=== PATIENT | male | born 1975 | race Caucasian/White ===

== ENCOUNTER 2020-10-17 07:18 | Outpatient (CLI) | payer OTHER | END 2020-10-17 07:27 | disposition home or self-care (01) | LOC: RAD 07:18 | PROVIDERS: ATTEND Chiropractor | DX: M62.838 Other muscle spasm (principal); M54.5 Low back pain; M54.2 Cervicalgia ==

== ENCOUNTER 2022-05-05 07:20 | Outpatient (CLI) | payer OTHER | END 2022-05-05 07:24 | disposition home or self-care (01) | LOC: LAB 07:20 | DX: R30.0 Dysuria (principal); N40.0 Benign prostatic hyperplasia without lower urinary tract symptoms; E55.9 Vitamin D deficiency, unspecified; D64.1 Secondary sideroblastic anemia due to disease; R10.9 Unspecified abdominal pain; M54.50 Low back pain, unspecified; Z12.11 Encounter for screening for malignant neoplasm of colon ==

== ENCOUNTER 2022-05-05 07:46 | Outpatient (CLI) | payer OTHER | END 2022-05-05 08:00 | disposition home or self-care (01) | LOC: SONOGRAMA 07:46 | DX: R10.9 Unspecified abdominal pain (principal); M54.50 Low back pain, unspecified ==

== ENCOUNTER 2023-01-04 06:59 | Outpatient (CLI) | payer OTHER | END 2023-01-04 07:03 | disposition home or self-care (01) | LOC: LAB 06:59 | PROVIDERS: ATTEND Internal Medicine | DX: E03.9 Hypothyroidism, unspecified (principal); I10 Essential (primary) hypertension; E03.8 Other specified hypothyroidism; E78.2 Mixed hyperlipidemia; E11.65 Type 2 diabetes mellitus with hyperglycemia ==

== ENCOUNTER 2023-07-28 06:49 | Outpatient (CLI) | payer OTHER ==
[2023-07-28 07:53] LABS: PH,URINE 6.5 (5.0-8.0); URINE APPEARANCE Clear; URINE BILIRRUBIN Negative (NEGATIVE); URINE BLOOD Negative; URINE COLOR Yellow; URINE GLUCOSE Negative (NEGATIVE); URINE LEUKOCYTE Negative; URINE NITRATE Negative; URINE PROTEIN Negative (NEGATIVE); URINE UROBILINOGEN 0.2 E.U./dl
[2023-07-28 07:54] LABS: HEMOGLOBIN 14.3 g/dL (13-16.00); MEAN CELL VOLUME 86.5 fL (80.0-100.00); MEAN CORPUSCULAR HEMOGLOBIN 29.5 pg (27.00-32.0); MEAN CORPUSCULAR HGB CONC 34.1 g/dl (32.0-36.0); PLATELET COUNT 246 K/uL (150-450); RED BLOOD COUNT 4.86 M/uL (4.00-6.00); RED CELL DISTRIBUTION WIDTH 14.5 % (11.5-14.5)
[2023-07-28 08:14] LABS: URINE BACTERIA 1.2 uL (0.0-1933); URINE EPITHELIAL CELLS 0.6 uL (0.0-38.8); URINE RBC 0.1 uL (0.0-20.8); URINE WBC 0.6 uL (0.0-23.2)
[2023-07-28 08:40] LABS: CREATININE SERUM 0.8 mg/dL (0.70-1.30); GFR 103.62; POTASSIUM 4.5 mEq/L (3.5-5.1)
[2023-07-28 08:41] LABS: BILIRUBIN TOTAL 0.48 mg/dL (0.3-1.2); CALCIUM 9.4 mg/dL (8.5-10.1); CHOL HDL RATIO 2.8 (0-5.0); GLOBULINA 3.1 G/DL (2.4-3.5); TOTAL PROTEIN 7.1 gm/dL (6.4-8.2)
[2023-07-28 10:23] LABS: VITAMIN D3 25 HYDROXY 31.76 ng/ml (30-120)
[2023-07-28 11:36] LABS: T4 FREE 1.05 NG/ML (0.76-1.46)
== END 2023-07-28 06:50 | disposition home or self-care (01) ==
LOC: LAB 06:49
PROVIDERS: ATTEND Internal Medicine
DX: E11.65 Type 2 diabetes mellitus with hyperglycemia (principal); E78.5 Hyperlipidemia, unspecified; I10 Essential (primary) hypertension; E53.8 Deficiency of other specified B group vitamins; E55.9 Vitamin D deficiency, unspecified

== ENCOUNTER → 2023-10-28 06:55 | Outpatient (CLI) | payer OTHER ==
[2023-10-28 07:28] LABS: URINE APPEARANCE Clear; URINE BILIRRUBIN Negative (NEGATIVE); URINE BLOOD Negative; URINE COLOR Yellow; URINE GLUCOSE Negative (NEGATIVE); URINE LEUKOCYTE Negative; URINE NITRATE Negative; URINE PROTEIN Negative (NEGATIVE); URINE UROBILINOGEN 0.2 E.U./dl
[2023-10-28 07:32] LABS: URINE BACTERIA 2.5 uL (0.0-1933); URINE EPITHELIAL CELLS 1.6 uL (0.0-38.8); URINE RBC 0.5 uL (0.0-20.8); URINE WBC 2.1 uL (0.0-23.2)
[2023-10-28 07:37] LABS: HEMOGLOBIN 14.6 g/dL (13-16.00); MEAN CORPUSCULAR HEMOGLOBIN 29.5 pg (27.00-32.0); MEAN CORPUSCULAR HGB CONC 33.9 g/dl (32.0-36.0); PLATELET COUNT 249 K/uL (150-450); RED BLOOD COUNT 4.95 M/uL (4.00-6.00); RED CELL DISTRIBUTION WIDTH 14.3 % (11.5-14.5)
[2023-10-28 08:41] LABS: ALBUMIN 3.9 gm/dL (3.4-5.0); BILIRUBIN TOTAL 0.44 mg/dL (0.3-1.2); CHOL HDL RATIO 2.9 (0-5.0); CREATININE SERUM 0.75 mg/dL (0.70-1.30); GFR 111.63; GLOBULINA 2.7 G/DL (2.4-3.5); POTASSIUM 4.4 mEq/L (3.5-5.1); TOTAL PROTEIN 6.6 gm/dL (6.4-8.2); TSH 2.94 uIU/mL (0.358-3.74)
== END | disposition home or self-care (01) ==
LOC: LAB 06:55
PROVIDERS: ATTEND Internal Medicine
DX: E11.65 Type 2 diabetes mellitus with hyperglycemia (principal); E78.5 Hyperlipidemia, unspecified; E55.9 Vitamin D deficiency, unspecified; E03.8 Other specified hypothyroidism; I10 Essential (primary) hypertension

== ENCOUNTER 2024-03-14 07:24 | Outpatient (CLI) | payer OTHER ==
[2024-03-14 08:00] LABS: HEMOGLOBIN 14.2 g/dL (13-16.00); MEAN CELL VOLUME 86.6 fL (80.0-100.00); MEAN CORPUSCULAR HGB CONC 34.6 g/dl (32.0-36.0); PLATELET COUNT 243 K/uL (150-450); RED BLOOD COUNT 4.73 M/uL (4.00-6.00); RED CELL DISTRIBUTION WIDTH 14.5 % (11.5-14.5)
[2024-03-14 08:27] LABS: ALBUMIN 3.9 gm/dL (3.4-5.0); BILIRUBIN TOTAL 0.63 mg/dL (0.3-1.2); CALCIUM 9.3 mg/dL (8.5-10.1); CHOL HDL RATIO 3.6 (0-5.0); CREATININE SERUM 0.77 mg/dL (0.70-1.30); GFR 107.83; POTASSIUM 4.14 mEq/L (3.5-5.1); TOTAL PROTEIN 6.9 gm/dL (6.4-8.2)
== END 2024-03-14 07:25 | disposition home or self-care (01) ==
LOC: LAB 07:24
PROVIDERS: ATTEND Internal Medicine
DX: E11.65 Type 2 diabetes mellitus with hyperglycemia (principal); E78.5 Hyperlipidemia, unspecified; I10 Essential (primary) hypertension

== ENCOUNTER 2024-06-17 07:50 | Outpatient (CLI) | payer OTHER ==
[2024-06-17 10:36] LABS: HEMATOCRIT 45.3 % (39.0-48.0); HEMOGLOBIN 15.1 g/dL (13-16.00); MEAN CELL VOLUME 89.2 fL (80.0-100.00); MEAN CORPUSCULAR HEMOGLOBIN 29.7 pg (27.00-32.0); MEAN CORPUSCULAR HGB CONC 33.3 g/dl (32.0-36.0); PLATELET COUNT 273 K/uL (150-450); RED BLOOD COUNT 5.08 M/uL (4.00-6.00); RED CELL DISTRIBUTION WIDTH 14.3 % (11.5-14.5)
[2024-06-17 10:42] LABS: URINE APPEARANCE Clear; URINE BILIRRUBIN Negative (NEGATIVE); URINE BLOOD Negative; URINE COLOR Yellow; URINE GLUCOSE Negative (NEGATIVE); URINE KETONE Negative (NEGATIVE); URINE LEUKOCYTE Negative; URINE NITRATE Negative; URINE PROTEIN Negative (NEGATIVE); URINE UROBILINOGEN 0.2 E.U./dl
[2024-06-17 10:49] LABS: URINE EPITHELIAL CELLS 1.5 uL (0.0-38.8)
[2024-06-17 11:04] LABS: URINE BACTERIA 3.7 uL (0.0-1933); URINE RBC 0.9 uL (0.0-20.8); URINE WBC 1.2 uL (0.0-23.2)
[2024-06-17 11:19] LABS: ALBUMIN 4.3 gm/dL (3.4-5.0); BILIRUBIN TOTAL 0.58 mg/dL (0.3-1.2); CALCIUM 9.1 mg/dL (8.5-10.1); CHOL HDL RATIO 2.3 (0-5.0); CREATININE SERUM 0.74 mg/dL (0.70-1.30); GFR 112.89; GLOBULINA 3.1 G/DL (2.4-3.5); POTASSIUM 4.41 mEq/L (3.5-5.1); T4 FREE 1.03 NG/ML (0.76-1.46); TOTAL PROTEIN 7.4 gm/dL (6.4-8.2); TSH 1.48 uIU/mL (0.358-3.74)
== END 2024-06-17 07:51 | disposition home or self-care (01) ==
LOC: LAB 07:50
PROVIDERS: ATTEND Internal Medicine
DX: E11.65 Type 2 diabetes mellitus with hyperglycemia (principal); E78.5 Hyperlipidemia, unspecified; I10 Essential (primary) hypertension; E55.9 Vitamin D deficiency, unspecified

== ENCOUNTER 2024-06-20 11:05 | Outpatient (CLI) | payer OTHER | END 2024-06-20 11:32 | disposition home or self-care (01) | LOC: MRI 11:05 | PROVIDERS: ATTEND Podiatrist Foot Surgery | DX: M72.2 Plantar fascial fibromatosis (principal) | CPT/HCPCS: 73718 ==

== ENCOUNTER 2024-10-06 07:44 | Outpatient (CLI) | payer OTHER ==
[2024-10-06 08:30] LABS: URINE APPEARANCE Clear; URINE BILIRRUBIN Negative (NEGATIVE); URINE BLOOD Negative; URINE COLOR Yellow; URINE GLUCOSE Negative (NEGATIVE); URINE KETONE Negative (NEGATIVE); URINE LEUKOCYTE Negative; URINE NITRATE Negative; URINE PROTEIN Negative (NEGATIVE); URINE UROBILINOGEN 0.2 E.U./dl
[2024-10-06 08:31] LABS: HEMATOCRIT 44.2 % (39.0-48.0); HEMOGLOBIN 15.3 g/dL (13-16.00); MEAN CELL VOLUME 86.9 fL (80.0-100.00); MEAN CORPUSCULAR HGB CONC 34.6 g/dl (32.0-36.0); PLATELET COUNT 277 K/uL (150-450); RED BLOOD COUNT 5.09 M/uL (4.00-6.00); RED CELL DISTRIBUTION WIDTH 14.2 % (11.5-14.5)
[2024-10-06 08:32] LABS: URINE BACTERIA 9.7 uL (0.0-1933)
[2024-10-06 08:34] LABS: URINE EPITHELIAL CELLS 1.1 uL (0.0-38.8); URINE RBC 0.8 uL (0.0-20.8); URINE WBC 0.7 uL (0.0-23.2)
[2024-10-06 09:39] LABS: ALBUMIN 4.2 gm/dL (3.4-5.0); BILIRUBIN TOTAL 0.51 mg/dL (0.3-1.2); CALCIUM 9.9 mg/dL (8.5-10.1); CHOL HDL RATIO 3.8 (0-5.0); CREATININE SERUM 0.82 mg/dL (0.70-1.30); GFR 100.28; GLOBULINA 3.1 G/DL (2.4-3.5); POTASSIUM 4.46 mEq/L (3.5-5.1); TOTAL PROTEIN 7.3 gm/dL (6.4-8.2); TSH 2.93 uIU/mL (0.358-3.74)
== END 2024-10-06 07:45 | disposition home or self-care (01) ==
LOC: LAB 07:44
DX: N39.0 Urinary tract infection, site not specified (principal); D51.9 Vitamin B12 deficiency anemia, unspecified; R94.5 Abnormal results of liver function studies; E78.49 Other hyperlipidemia; E03.8 Other specified hypothyroidism; E11.9 Type 2 diabetes mellitus without complications; E55.9 Vitamin D deficiency, unspecified

== ENCOUNTER 2024-10-09 09:31 | Outpatient (CLI) | payer OTHER | END 2024-10-09 09:38 | disposition home or self-care (01) | LOC: RAD 09:31 | PROVIDERS: ATTEND Physical Medicine & Rehabilitation | DX: M54.2 Cervicalgia (principal) ==

== ENCOUNTER 2025-01-12 07:11 | Outpatient (CLI) | payer OTHER ==
[2025-01-12 07:56] LABS: HEMATOCRIT 42.1 % (39.0-48.0); HEMOGLOBIN 14.3 g/dL (13-16.00); MEAN CELL VOLUME 86.5 fL (80.0-100.00); MEAN CORPUSCULAR HEMOGLOBIN 29.5 pg (27.00-32.0); MEAN CORPUSCULAR HGB CONC 34.1 g/dl (32.0-36.0); PLATELET COUNT 247 K/uL (150-450); RED BLOOD COUNT 4.87 M/uL (4.00-6.00); RED CELL DISTRIBUTION WIDTH 14.4 % (11.5-14.5)
[2025-01-12 08:32] LABS: ALBUMIN 4.1 gm/dL (3.4-5.0); BILIRUBIN TOTAL 0.4 mg/dL (0.3-1.2); CALCIUM 9.3 mg/dL (8.5-10.1); CHOL HDL RATIO 3.8 (0-5.0); CREATININE SERUM 0.69 mg/dL (0.70-1.30); GFR 121.87; GLOBULINA 2.8 G/DL (2.4-3.5); POTASSIUM 4.1 mEq/L (3.5-5.1); TOTAL PROTEIN 6.9 gm/dL (6.4-8.2)
== END 2025-01-12 07:13 | disposition home or self-care (01) ==
LOC: LAB 07:11
PROVIDERS: ATTEND Internal Medicine
DX: E11.65 Type 2 diabetes mellitus with hyperglycemia (principal); E78.9 Disorder of lipoprotein metabolism, unspecified

== ENCOUNTER 2025-04-13 07:22 | Outpatient (CLI) | payer OTHER ==
[2025-04-13 08:23] LABS: BASO % 0.9 % (0.1-1.2); EOS # 0.07 (0.04-0.54); EOS % 1.0 % (0.7-7.0); LYMPH # 2.67 (1.18-3.74); LYMPH % 40.0 % (19.3-53.1); MEAN PLATELET VOLUME 9.60 fl (9.4-12.4); MONO # 0.56 (0.24-0.82); MONO % 8.4 % (4.7-12.5); NEUT # 3.30 (1.56-6.13); NEUT % 49.4 % (34.0-71.1); RED CELL DISTRIBUTION WIDTH 13.5 % (11.6-14.4)
[2025-04-13 08:25] LABS: URINE APPEARANCE Clear; URINE BILIRRUBIN Negative (NEGATIVE); URINE BLOOD Negative; URINE COLOR Yellow; URINE GLUCOSE Negative (NEGATIVE); URINE KETONE Negative (NEGATIVE); URINE LEUKOCYTE Negative; URINE NITRATE Negative; URINE PROTEIN Negative (NEGATIVE); URINE UROBILINOGEN 0.2 E.U./dl
[2025-04-13 08:50] LABS: URINE BACTERIA 1.2 uL (0.0-1933); URINE CAST 0.00 uL (0.0-1.40); URINE EPITHELIAL CELLS 1.0 uL (0.0-38.8); URINE RBC 0.5 uL (0.0-20.8); URINE WBC 1.0 uL (0.0-23.2)
[2025-04-13 09:06] LABS: ALT/SGPT 57.0 U/L (12-78); AST/SGOT 26.0 U/L (15-37); BILIRUBIN TOTAL 0.55 mg/dL (0.3-1.2); BUN CREA RATIO 11.0 (7.0-25.0); CHOL HDL RATIO 3.4 (0-5.0); CREATININE SERUM 0.73 mg/dL (0.70-1.30); GFR 114.2; GLOBULINA 2.9 G/DL (2.4-3.5); GLUCOSE FASTING 117.0 mg/dL (65-100); HDL 49.0 mg/dl (40-60); LDL 80.0 mg/dl (0-130); OSMOLALITY SERUM 281.0 MOSM/KG (275-295); VLDL 35.0 (0-39)
== END 2025-04-13 07:25 | disposition home or self-care (01) ==
LOC: LAB 07:22
DX: E11.65 Type 2 diabetes mellitus with hyperglycemia (principal); E78.2 Mixed hyperlipidemia; I10 Essential (primary) hypertension; D50.8 Other iron deficiency anemias; R30.0 Dysuria